=== PATIENT | female | born 1965 | race African-American/Black ===

== ENCOUNTER 2020-09-27 07:04 | Day surgery (SDC) | payer OTHER ==
[~2020-09-27] VITALS: Ht 165.1 cm; Wt 63.0 kg
[2020-09-27 07:36] VITALS: BP 134/81; PULSE 63; TEMP 97.2
[2020-09-27] MEDS ORDERED: NORVASC 10MG10 MG PO (07:49)
[2020-09-27] MEDS ORDERED: ASPIRIN E.C. 8181 MG PO (07:49)
--- NOTE | 2020-09-27 07:51 | NUR ---
TO RM AT 0710- CALL LIGHT IN REACH AT BEDSIDE.
[2020-09-27 09:05] VITALS: BP 118/81; PULSE 55
--- NOTE | 2020-09-27 09:05 | NUR ---
PATIENT TO RECOVERY BAY 3 POST PROCEDURE VIA CART BY JR FAUST. AMBULATORY TO CHAIR WITH 1 PERSON ASSIST. REPORT FROM JR FAUST. MADE COMFORTABLE IN CHAIR. WARM BLANKETS GIVEN. VITAL SIGNS TAKEN, WNL. DENIES PAIN OR NAUSEA. GIVEN HOT CHOCOLATE TO DRINK AND MUFFIN TO EAT. CALL LIGHT WITHIN REACH.
[2020-09-27 09:15] VITALS: BP 125/90; PULSE 55
[2020-09-27 09:30] VITALS: BP 132/90; PULSE 54
--- NOTE | 2020-09-27 09:34 | NUR ---
AT BEDSIDE TO SPEAK WITH PAT ABOUT PROCEDURE
--- NOTE | 2020-09-27 09:40 | NUR ---
HARD COPIES AND VERBAL EXPLANATION OF DISMISSAL INSTRUCTIONS GIVEN. PATIENT GIVES VERBAL UNDERSTANDING AND SIGNS CONFIRMATION WELL.
--- NOTE | 2020-09-27 09:42 | NUR ---
IV SITE TO LEFT WRIST DISCONTINUED. NO REDNESS OR SWELLING. SECURED WITH COTTON BALL AND COBAN.
--- NOTE | 2020-09-27 09:50 | NUR ---
PATIENT ESCORTED OFF UNIT VIA WHEELCHAIR TO WAITING GEOPHYSICAL SUPPORT SPECIALIST BY THELMA RN. HELPED TO CAR.
== END 2020-09-27 09:50 | disposition home or self-care (01) ==
LOC: SDCO 07:04
DX: Z12.11 Encounter for screening for malignant neoplasm of colon (principal); D12.3 Benign neoplasm of transverse colon; K64.0 First degree hemorrhoids; I10 Essential (primary) hypertension; Z79.82 Long term (current) use of aspirin; Z90.89 Acquired absence of other organs; Z79.899 Other long term (current) drug therapy; Z91.040 Latex allergy status
CPT/HCPCS: J2704; J7030